=== PATIENT | female | born 1990 | race African-American/Black ===

== ENCOUNTER 2016-08-23 19:58 | Emergency (ER) | payer OTHER ==
[~2016-08-23] VITALS: Ht 162.6 cm; Wt 53.0 kg
[~2016-08-23 19:58] MED LIST: AMOXICILLIN500 MG OR; AUGMENTIN500TAB PO; FERROUS SULF325 M1 PO; GENTAMICIN15 ML/BTL OP; IBUPROFEN600 MG PO; KEFLEX250 MG PO; LORTAB5 PO; NO; PRE-NATAL PO; PROCARDIA XL30 MG PO
[2016-08-23 20:50] LABS: INFLUENZA A NONE DETECTED (NONE DETECT); INFLUENZA B NONE DETECTED (NONE DETECT)
[2016-08-23] MEDS ORDERED: ZITHROMAX250 MG PO (21:03)
[2016-08-23 21:04] VITALS: BP 148/87
== END 2016-08-23 21:10 | disposition home or self-care (01) | DRG 203 ==
LOC: ED 19:58
PROVIDERS: Emergency Medicine
DX: J40 Bronchitis, not specified as acute or chronic (principal); R51 Headache; R05 Cough

== ENCOUNTER 2017-01-12 08:29 | Emergency (ER) | payer OTHER ==
[~2017-01-12] VITALS: Ht 162.6 cm; Wt 60.2 kg
[~2017-01-12 08:29] MED LIST changes: +ZITHROMAX250 MG PO
[2017-01-12] MEDS ORDERED: ERYTHROMYCIN O3.5 GM OS (08:53)
[2017-01-12 09:01] VITALS: BP 121/50
== END 2017-01-12 09:01 | disposition home or self-care (01) | DRG 125 ==
LOC: ED 08:29
DX: H10.9 Unspecified conjunctivitis (principal)

== ENCOUNTER 2017-01-14 17:55 | Emergency (ER) | payer OTHER ==
[~2017-01-14] VITALS: Ht 157.5 cm; Wt 60.0 kg
[~2017-01-14 17:55] MED LIST changes: +ERYTHROMYCIN O3.5 GM OS
[2017-01-14 20:08] LABS: URINE BILIRUBIN - DIPSTICK NEGATIVE (NEGATIVE); URINE BLOOD DIPSTICK NEGATIVE (NEGATIVE); URINE CLARITY CLEAR; URINE COLOR YELLOW; URINE GLUCOSE - DIPSTICK NEGATIVE (NEGATIVE); URINE KETONE NEGATIVE (NEGATIVE); URINE LEUK ESTERASE NEGATIVE (NEGATIVE); URINE NITRITE - DIPSTICK NEGATIVE (Negative); URINE PH 5.5 (4.5-8.0); URINE PROTEIN - DIPSTICK NEGATIVE (NEG-TRACE); URINE UROBILINOGEN - DIPSTICK 0.2 E.U./dL (0.2)
[2017-01-14 20:50] VITALS: BP 125/81
== END 2017-01-14 20:51 | disposition home or self-care (01) | DRG 605 ==
LOC: ED 17:55
PROVIDERS: Emergency Medicine
DX: S30.1XXA Contusion of abdominal wall, initial encounter (principal); Z33.1 Pregnant state, incidental; W01.0XXA Fall on same level from slipping, tripping and stumbling without subsequent striking against object, initial encounter; Y92.89 Other specified places as the place of occurrence of the external cause; Y99.0 Civilian activity done for income or pay

== ENCOUNTER 2017-06-10 07:56 | Inpatient (IN) | payer OTHER ==
[2017-06-10] VITALS (9 sets, daily range): BP systolic 127–168; BP diastolic 72–100
[~2017-06-10] VITALS: Ht 157.5 cm; Wt 68.0 kg
[2017-06-10] MEDS ORDERED: PRE-NATAL PO (09:42)
[2017-06-11 05:50] VITALS: BP 153/91
[2017-06-11 06:05] LABS: HEMATOCRIT 33.8 % (37.0-47.0); HEMOGLOBIN 10.9 g/dl (12.0-16.0); IMMATURE GRANULOCYTES 0.8 % (0.0-1.0); MEAN CELL VOLUME 86.7 fL CALC (80.0-100.0); MEAN CORPUSCULAR HGB 27.9 pG CALC (26.0-32.0); MEAN CORPUSCULAR HGB CONC 32.2 g/L CALC (32.0-36.0); NEUT# 9.64 thou/uL (2.00-7.15); RED BLOOD COUNT 3.9 mill/uL (4.20-5.60); RED CELL DISTRI WIDTH 15.1 % (11.5-15.5)
[2017-06-11 08:00] VITALS: BP 143/89
[2017-06-11 14:08] VITALS: BP 128/81
[2017-06-11 21:10] VITALS: BP 131/84
[2017-06-12] MEDS ORDERED: FERR SULFATE325 MG PO (07:13)
[2017-06-12 08:28] VITALS: BP 138/90
[2017-06-12] MEDS ORDERED: IBUPROFEN600 MG PO (09:45)
[2017-06-12] MEDS ORDERED: LABETALOL200 MG PO (09:47)
== END 2017-06-12 10:30 | disposition home or self-care (01) | DRG 774 ==
LOC: OB 07:56 → OBOP 07:56 → OB 07:58
PROVIDERS: ADMIT Obstetrics & Gynecology; ATTEND Obstetrics & Gynecology
PROC: 10E0XZZ Delivery of Products of Conception, External Approach (ICD-10-PCS; principal; 2017-06-10)
PROC: 10907ZC Drainage of Amniotic Fluid, Therapeutic from Products of Conception, Via Natural or Artificial Opening (ICD-10-PCS; 2017-06-10)
DX: O99.334 Smoking (tobacco) complicating childbirth (principal); F17.210 Nicotine dependence, cigarettes, uncomplicated; O16.5 Unspecified maternal hypertension, complicating the puerperium; O77.0 Labor and delivery complicated by meconium in amniotic fluid; Z3A.39 39 weeks gestation of pregnancy; Z37.0 Single live birth

== ENCOUNTER 2018-10-02 21:58 | Emergency (ER) | payer OTHER ==
[~2018-10-02] VITALS: Ht 157.5 cm; Wt 68.0 kg
[~2018-10-02 21:58] MED LIST changes: +FERR SULFATE325 MG PO; +LABETALOL200 MG PO
[2018-10-03 00:13] LABS: HEMATOCRIT 27.7 % (37.0-47.0); HEMOGLOBIN 8.9 g/dl (12.0-16.0); IMMATURE GRANULOCYTES 0.4 % (0.0-5.0); MEAN CORPUSCULAR HGB 26.3 pG CALC (26.0-32.0); MEAN CORPUSCULAR HGB CONC 32.1 g/L CALC (32.0-36.0); NEUT# 4.74 thou/uL (2.00-7.15); RED BLOOD COUNT 3.38 mill/uL (4.20-5.60); RED CELL DISTRI WIDTH 14.7 % (11.5-15.5)
[2018-10-03 00:58] LABS: ALBUMIN 3.2 g/dL (3.2-5.0); ALKALINE PHOSPHATASE 151 u/l (38-126); ANION GAP 11 (6-22 (CALC)); BILIRUBIN, TOTAL 0.3 mg/dL (0.0-1.4); BUN 6 mg/dL (7-17); BUN/CREATININE RATIO 14 (12-20 (CALC)); CARBON DIOXIDE 21 mmol/l (22-30); CHLORIDE 107 mmol/l (95-108); CREATININE 0.4 mg/dL (0.5-1.0); GFR > 60 ML/MIN (>=60 (CALC)); GFR FOR AFR.AMER. > 60 ML/MIN (>=60 (CALC)); SGOT/AST 21 u/l (14-36); SODIUM 135 mmol/l (137-146); TOTAL PROTEIN 6.1 g/dL (6.3-8.2)
[2018-10-03] MEDS ORDERED: ZOFRAN ODT4 MG PO (01:16)
[2018-10-03 01:20] VITALS: BP 130/60
== END 2018-10-03 01:25 | disposition home or self-care (01) ==
LOC: ED 21:58
PROVIDERS: Emergency Medicine
DX: O99.613 Diseases of the digestive system complicating pregnancy, third trimester (principal); R19.7 Diarrhea, unspecified; R10.33 Periumbilical pain; R11.0 Nausea; Z3A.32 32 weeks gestation of pregnancy

== ENCOUNTER 2018-11-10 19:28 | Emergency (ER) | payer OTHER ==
[~2018-11-10] VITALS: Ht 157.5 cm; Wt 62.4 kg
[~2018-11-10 19:28] MED LIST changes: +ZOFRAN ODT4 MG PO
[2018-11-10] MEDS ORDERED: NIFEDIPINE60 MG PO (20:09)
[2018-11-10 20:20] LABS: HEMATOCRIT 28.7 % (37.0-47.0); IMMATURE GRANULOCYTES 1.2 % (0.0-5.0); MEAN CELL VOLUME 80.2 fL CALC (80.0-100.0); MEAN CORPUSCULAR HGB 25.1 pG CALC (26.0-32.0); MEAN CORPUSCULAR HGB CONC 31.4 g/L CALC (32.0-36.0); NEUT# 6.64 thou/uL (2.00-7.15); RED BLOOD COUNT 3.58 mill/uL (4.20-5.60); RED CELL DISTRI WIDTH 17.6 % (11.5-15.5)
[2018-11-10 20:22] LABS: URINE BILIRUBIN - DIPSTICK NEGATIVE (NEGATIVE); URINE BLOOD DIPSTICK LARGE (NEGATIVE); URINE COLOR YELLOW; URINE GLUCOSE - DIPSTICK NEGATIVE (NEGATIVE); URINE KETONE NEGATIVE (NEGATIVE); URINE LEUK ESTERASE MODERATE (NEGATIVE); URINE NITRITE - DIPSTICK NEGATIVE (Negative); URINE PROTEIN - DIPSTICK NEGATIVE (NEG-TRACE); URINE SPECIFIC GRAVITY 1.015; URINE UROBILINOGEN - DIPSTICK 0.2 E.U./dL (0.2)
[2018-11-10 20:35] LABS: ALBUMIN 2.9 g/dL (3.2-5.0); ALKALINE PHOSPHATASE 138 u/l (38-126); ANION GAP 14 (6-22 (CALC)); BILIRUBIN, TOTAL 0.2 mg/dL (0.0-1.4); BUN 10 mg/dL (7-17); BUN/CREATININE RATIO 19 (12-20 (CALC)); CHLORIDE 102 mmol/l (95-108); CREATININE 0.5 mg/dL (0.5-1.0); GFR > 60 ML/MIN (>=60 (CALC)); GFR FOR AFR.AMER. > 60 ML/MIN (>=60 (CALC)); POTASSIUM 3.9 mmol/l (3.5-5.1); SGOT/AST 22 u/l (14-36); SODIUM 138 mmol/l (137-146); TOTAL PROTEIN 5.9 g/dL (6.3-8.2)
[2018-11-10 20:36] LABS: CARBON DIOXIDE 26 mmol/l (22-30)
[2018-11-10 20:37] LABS: URINE RBC TNTC RBC/hpf (0-5)
[2018-11-10 20:38] LABS: URINE BACTERIA FEW hpf; URINE SQUAMOUS EPITHELIAL CELL FEW EPI/hpf (0-FEW)
[2018-11-10] MEDS ORDERED: AMOXICILLIN500 MG PO (22:03)
[2018-11-10 22:10] VITALS: BP 128/78
== END 2018-11-10 22:20 | disposition home or self-care (01) ==
LOC: ED 19:28
PROVIDERS: Emergency Medicine
DX: O86.89 Other specified puerperal infections (principal); I10 Essential (primary) hypertension; R22.41 Localized swelling, mass and lump, right lower limb

== ENCOUNTER 2019-05-18 | Emergency (ER) | payer OTHER ==
[~2019-05-18] MED LIST changes: +AMOXICILLIN500 MG PO; +NIFEDIPINE60 MG PO
[2019-05-18 14:43] LABS: URINE BILIRUBIN - DIPSTICK NEGATIVE (NEGATIVE); URINE BLOOD DIPSTICK NEGATIVE (NEGATIVE); URINE COLOR YELLOW; URINE GLUCOSE - DIPSTICK NEGATIVE (NEGATIVE); URINE KETONE NEGATIVE (NEGATIVE); URINE LEUK ESTERASE NEGATIVE (NEGATIVE); URINE NITRITE - DIPSTICK NEGATIVE (Negative); URINE PROTEIN - DIPSTICK NEGATIVE (NEG-TRACE); URINE SPECIFIC GRAVITY 1.015; URINE UROBILINOGEN - DIPSTICK 0.2 E.U./dL (0.2)
[2019-05-18] MEDS ORDERED: FLEXERIL PO (16:07)
[2019-05-18] MEDS ORDERED: NAPROXEN500 MG PO (16:07)
== END 2019-05-18 16:34 | disposition home or self-care (01) | DRG 552 ==
PROVIDERS: Emergency Medicine
DX: S13.9XXA Sprain of joints and ligaments of unspecified parts of neck, initial encounter (principal); I10 Essential (primary) hypertension; V43.52XA Car driver injured in collision with other type car in traffic accident, initial encounter

== ENCOUNTER 2019-05-27 | Emergency (ER) | payer OTHER ==
[~2019-05-27] MED LIST changes: +FLEXERIL PO; +NAPROXEN500 MG PO
[2019-05-27] MEDS ORDERED: TESSALON PER100 MG PO (11:49)
[2019-05-27] MEDS ORDERED: ZITHROMAX500 MG PO (11:49)
[2019-05-27] MEDS ORDERED: VENTOLIN HFA IN (11:49)
== END 2019-05-27 11:55 | disposition home or self-care (01) ==
DX: J20.9 Acute bronchitis, unspecified (principal); I10 Essential (primary) hypertension

== ENCOUNTER 2019-09-13 15:03 | Emergency (ER) | payer OTHER ==
[~2019-09-13 15:03] MED LIST changes: +TESSALON PER100 MG PO; +VENTOLIN HFA IN; +ZITHROMAX500 MG PO
[2019-09-13 15:36] VITALS: BP 139/81
== END 2019-09-13 15:37 | disposition home or self-care (01) ==
LOC: ED 15:03
DX: R23.3 Spontaneous ecchymoses (principal); I10 Essential (primary) hypertension

== ENCOUNTER 2019-11-07 22:51 | Emergency (ER) | payer OTHER ==
[~2019-11-07] VITALS: Ht 157.5 cm; Wt 61.3 kg
[2019-11-07] MEDS ORDERED: IBUPROFEN600 MG PO (23:41)
[2019-11-07] MEDS ORDERED: AMOXICILLIN500 M2 PO (23:41)
[2019-11-08 00:08] VITALS: BP 153/80
== END 2019-11-08 00:08 | disposition home or self-care (01) ==
LOC: ED 22:51
DX: H66.92 Otitis media, unspecified, left ear (principal); I88.9 Nonspecific lymphadenitis, unspecified; I10 Essential (primary) hypertension

== ENCOUNTER 2019-11-16 04:34 | Emergency (ER) | payer OTHER ==
[~2019-11-16] VITALS: Ht 157.5 cm; Wt 61.3 kg
[~2019-11-16 04:34] MED LIST changes: +AMOXICILLIN500 M2 PO
[2019-11-16 05:00] VITALS: BP 149/86
== END 2019-11-16 05:00 | disposition home or self-care (01) ==
LOC: ED 04:34
DX: T16.2XXA Foreign body in left ear, initial encounter (principal); I10 Essential (primary) hypertension; X58.XXXA Exposure to other specified factors, initial encounter

== ENCOUNTER 2020-01-03 20:49 | Emergency (ER) | payer OTHER ==
[~2020-01-03] VITALS: Ht 157.5 cm; Wt 66.0 kg
[2020-01-03 21:15] VITALS: BP 124/88
== END 2020-01-03 21:15 | disposition home or self-care (01) ==
LOC: ED 20:49
DX: S00.551A Superficial foreign body of lip, initial encounter (principal); I10 Essential (primary) hypertension; X58.XXXA Exposure to other specified factors, initial encounter